=== PATIENT | female | born 1960 | race Caucasian/White ===

== ENCOUNTER → 2020-12-24 13:07 | Outpatient (BNVA) | payer BC, SELFPAY | PROVIDERS: Visit Provider Nurse Practitioner Family | DX: N39.0 Urinary tract infection, site not specified (principal); B37.3 Candidiasis of vulva and vagina | CPT/HCPCS: 81000; 87086 ==

== ENCOUNTER → 2021-06-30 10:15 | Outpatient (BNVA) | payer BC, SELFPAY | PROVIDERS: Visit Provider Nurse Practitioner | DX: N39.0 Urinary tract infection, site not specified (principal) | CPT/HCPCS: 81000 ==